=== PATIENT | female | born 1975 | race Caucasian/White ===

== ENCOUNTER → 2018-02-05 20:39 | Outpatient (CLI) | payer OTHER, SELFPAY ==
[2018-02-09 08:41] LABS: HPV APTIMA, High Risk Negative (Negative)
== END ==
PROVIDERS: Visit Provider Obstetrics & Gynecology
DX: Z12.4 Encounter for screening for malignant neoplasm of cervix (principal)
CPT/HCPCS: 88175; G0145

== ENCOUNTER → 2020-03-23 | Outpatient (CLI) | payer OTHER, SELFPAY ==
[2020-03-28 07:39] LABS: HPV Reflexed? NOT INDICATED
== END | disposition home or self-care (01) ==
LOC: LABSPEC 03-24 09:39
PROVIDERS: Visit Provider Obstetrics & Gynecology
DX: Z12.4 Encounter for screening for malignant neoplasm of cervix (principal)
CPT/HCPCS: 88175; G0145